=== PATIENT | female | born 2000 | race African-American/Black ===

== ENCOUNTER 2018-12-09 00:40 | Emergency (ER) | payer SELFPAY ==
[~2018-12-09] VITALS: Ht 162.6 cm; Wt 59.0 kg
[2018-12-09 00:55] VITALS: BP 137/86
[2018-12-09] MEDS ORDERED: KETOROLAC TROMETH 60MG/2ML VIAL IM ONE (01:30)
[2018-12-09] MEDS ORDERED: CLINDAMYCIN 600 MG/4 ML VL IM ONE (01:30)
== END 2018-12-09 01:59 | disposition home or self-care (01) ==
LOC: ER 00:45
DX: K04.7 Periapical abscess without sinus (principal); K02.9 Dental caries, unspecified; Z88.0 Allergy status to penicillin
CPT/HCPCS: 96372; 99283; J1885

== ENCOUNTER 2019-10-22 17:17 | Emergency (ER) | payer MEDICAID ==
[~2019-10-22] VITALS: Ht 162.6 cm; Wt 59.0 kg
[2019-10-22 21:00] LABS: Urine Bacteria FEW /hpf (None Seen); Urine Blood 2+ /uL (Negative); Urine Mucus FEW (None Seen); Urine WBC 22 /hpf (0 - 5)
[2019-10-22 23:03] LABS: Amphetamine Screen, Urine NEGATIVE (NEGATIVE); Barbiturate Scree,Urine NEGATIVE (NEGATIVE); Benzodiazephine Screen, Urine NEGATIVE (NEGATIVE); Cannabinoid Screen, Urine NEGATIVE (NEGATIVE); Cocaine Screen, Urine NEGATIVE (NEGATIVE); Opiate Scree,Urine NEGATIVE (NEGATIVE); Phencyclidine Screen, Urine NEGATIVE (NEGATIVE)
[2019-10-22 23:26] LABS: Eosinophils # (auto) 0 10 ^3/uL (0-0.8); Hematocrit 36.9 % (36.0-46.0); Hemoglobin 11.3 g/dL (12.2-16.2); Lymphocytes # (auto) 2.1 10 ^3/uL (0.4-5.4); White Blood Cell 9.1 10^3/uL (4.4-10.8)
[2019-10-22 23:28] LABS: Basophils # (auto) 0.1 10 ^3/uL (0-0.2); Basophils % (auto) 0.8 % (0.0-2.0); Eosinophils % (auto) 0.3 % (0.0-7.0); Lymphocytes % (auto) 23.4 % (10.0-50.0); Mean Corpuscular Hgb Conc. 30.5 g/dL (32.0-36.0); Mean Corpuscular Volume 68.6 fL (80.0-100.0); Monocytes # (auto) 0.5 10 ^3/uL (0-1.3); Monocytes % (auto) 5.6 % (0.0-12.0); Neutrophils # (auto) 6.4 10 ^3/uL (1.6-8.6); Neutrophils % (auto) 69.9 % (37.0-80.0); Platelet Count (auto) 508 10^3/uL (140-450); Red Blood Cells 5.37 10^6/uL (4.0-5.20)
[2019-10-22 23:30] LABS: Red Cell Distribution Width 21.1 % (11.8-14.3)
[2019-10-22 23:46] LABS: Albumin 2.7 g/dL (3.4-5.0); BUN/Creatinine Ratio 13.6; Calcium 8.8 mg/dL (8.5-10.1); Potassium 3.7 mmol/L (3.5-5.1)
[2019-10-22 23:47] LABS: Bilirubin, Total 0.4 mg/dL (0.2-1.0)
[2019-10-22 23:51] LABS: Partial Thromboplastin Time 30.5 sec (23.0-31.2)
[2019-10-23 01:28] VITALS: BP 127/92
[2019-10-23] MEDS ORDERED: HYDROcodone-ACET 10/325MG TAB PO ONE (01:30)
[2019-10-23] MEDS ORDERED: IBUPROFEN 800 MG TAB PO ONE (01:30)
== END 2019-10-23 02:14 | disposition home or self-care (01) ==
LOC: ER 17:17
DX: N39.0 Urinary tract infection, site not specified (principal); N85.8 Other specified noninflammatory disorders of uterus
CPT/HCPCS: 36415; 76830; 76856; 80053; 80307; 81001; 84702; 85025; 85610; 85730

== ENCOUNTER 2024-01-05 08:41 | Emergency (ER) | payer MEDICAID ==
[~2024-01-05] VITALS: Ht 162.6 cm; Wt 64.0 kg
[2024-01-05 09:30] VITALS: BP 115/74; PULSE 105; RESP 16; TEMP 99; O2SAT 97
[2024-01-05] MEDS ORDERED: HYDR-4902 PO (09:49)
[2024-01-05] MEDS ORDERED: IBUP1TAB5 PO (09:49)
== END 2024-01-05 10:02 | disposition home or self-care (01) ==
LOC: ER 08:41
DX: S92.511A Displaced fracture of proximal phalanx of right lesser toe(s), initial encounter for closed fracture (principal); Z79.1 Long term (current) use of non-steroidal anti-inflammatories (NSAID); Z88.0 Allergy status to penicillin; W10.8XXA Fall (on) (from) other stairs and steps, initial encounter; Y93.01 Activity, walking, marching and hiking; Y92.89 Other specified places as the place of occurrence of the external cause; Y99.8 Other external cause status
CPT/HCPCS: 29515; 73630